=== PATIENT | male | born 1965 | race Caucasian/White ===

== ENCOUNTER → 2018-01-04 | Outpatient (CLI) | payer OTHER ==
[~2018-01-04] MED LIST: Z.0.LISINOPRIL20 MG PO; Z.0.PRILOSEC20 MG PO; Z.0.PROZAC20 MG PO; Z.0.WELLBUTRIN XL300 PO
--- NOTE | 2018-01-04 11:13 | Diagnostic Imaging Report ---
PROCEDURE:ABDOMINAL ULTRASOUND COMPARISON:None. INDICATIONS:possible acute cholecystitis, rlq pain FINDINGS: Liver: 16.3 cm in length Normal hepatic parenchymal echogenicity. No focal mass. Main portal vein: 1.4 cm in caliber. Hepatopedal flow. Gallbladder: No stones or sludge. The gallbladder wall is thickened, measuring 5 mm. Common Bile Duct: 0.3 cm in caliber. No echogenic filling defect. Sonographic Hillman's sign: Negative. Right kidney: 11.8 cm in length. No solid or cystic mass, echogenic calculi, or hydronephrosis. Normal parenchymal echogenicity. Left kidney: 12.2 cm in length. No solid or cystic mass, echogenic calculi, or hydronephrosis. Normal parenchymal echogenicity. Spleen: 12.8 cm in length. Pancreas: Limited visualization of the pancreas due to overlying bowel gas. Inferior vena cava: Normal. Aorta: Limited visualization due to overlying bowel gas. Ascites: None. CONCLUSION: No evidence of cholelithiasis or acute cholecystitis. There is mild diffuse thickening of the gallbladder wall which is of uncertain etiology. Dictated by: Orlin Terry M.D. on 01/04/2018 at 11:17 Electronically approved by: Orlin Terry M.D. on 01/04/2018 at 11:17
== END ==
LOC: US 09:40
PROVIDERS: ATTEND Internal Medicine
DX: K81.0 Acute cholecystitis (principal)
CPT/HCPCS: 76700

== ENCOUNTER → 2018-01-14 | Outpatient (CLI) | payer OTHER ==
--- NOTE | 2018-01-14 19:43 | Diagnostic Imaging Report ---
Hepatobiliary Scan with Gallbladder Ejection Fraction Clinical information: 52 M with RUQ abdominal pain intermittently x 5 months Report: Following intravenous administration of 6.1 millicuries of Tc-99m mebrofenin, dynamic images of the abdomen in the anterior projection were obtained through 30 minutes. Sincalide (CCK analog) 2.5 micrograms was administered intravenously over 30 minutes with additional imaging for determination of gallbladder ejection fraction. Perfusion to the liver is normal. Extraction of tracer from the blood pool by the liver parenchyma is normal. Tracer is seen promptly within the biliary tract. The gallbladder begins to fill by 10 minutes post-injection of tracer and fills adequately. Tracer is seen in the small bowel by 16 minutes. The gallbladder ejection fraction with administration of sincalide is 64% (normal greater than 40%). Impression: 1. Filling of the gallbladder excludes the diagnosis of acute cystic duct obstruction/acute cholecystitis. 2. Normal gallbladder ejection fraction of 64% does not support the clinical diagnosis of chronic cholecystitis/gallbladder dyskinesia. Signed by: Dr. Angely Connell M.D. on 01/14/2018 7:40 PM
== END | disposition home or self-care (01) ==
LOC: NM 12:51
PROVIDERS: ATTEND Internal Medicine
DX: R10.11 Right upper quadrant pain (principal)
CPT/HCPCS: 78227; A9537